=== PATIENT | female | born 1985 | race Two or more races ===

== ENCOUNTER 2019-11-01 12:05 | Observation (INO) | payer MEDICAID, OTHER ==
[~2019-11-01] VITALS: Ht 157.5 cm; Wt 56.7 kg
== END 2019-11-01 13:30 | disposition home or self-care (01) | DRG 563 ==
LOC: LDRP 12:05
PROVIDERS: ADMIT Specialist; ATTEND Specialist
DX: O60.03 Preterm labor without delivery, third trimester (principal); Z3A.30 30 weeks gestation of pregnancy
CPT/HCPCS: 59025; 81002; G0378

== ENCOUNTER 2019-11-08 11:35 | Observation (INO) | payer MEDICAID | END 2019-11-08 12:20 | disposition home or self-care (01) | DRG 563 | LOC: LDRP 11:35 | PROVIDERS: ADMIT Obstetrics & Gynecology; ATTEND Obstetrics & Gynecology | DX: O60.03 Preterm labor without delivery, third trimester (principal); Z3A.31 31 weeks gestation of pregnancy | CPT/HCPCS: 59025; 81002; G0378 ==

== ENCOUNTER 2019-11-15 12:20 | Observation (INO) | payer MEDICAID ==
[2019-11-15] MEDS ORDERED: NIF10C PO (15:05)
[2019-11-15] MEDS ORDERED: FERR-7 PO (15:05)
[2019-11-15] MEDS ORDERED: HYDR250I6 IM (15:06)
[2019-11-15] MEDS ORDERED: PREN-153 OR (15:06)
== END 2019-11-15 13:25 | disposition home or self-care (01) | DRG 563 ==
LOC: LDRP 12:20
PROVIDERS: ADMIT Obstetrics & Gynecology; ATTEND Obstetrics & Gynecology
DX: O60.03 Preterm labor without delivery, third trimester (principal); Z3A.30 30 weeks gestation of pregnancy
CPT/HCPCS: 59025; 81002; G0378

== ENCOUNTER 2019-11-22 11:44 | Observation (INO) | payer MEDICAID ==
[~2019-11-22 11:44] MED LIST: FERR-7 PO; HYDR250I6 IM; NIF10C PO; PREN-153 OR
== END 2019-11-22 12:35 | disposition home or self-care (01) | DRG 563 ==
LOC: LDRP 11:44
PROVIDERS: ADMIT Obstetrics & Gynecology; ATTEND Obstetrics & Gynecology
DX: O60.03 Preterm labor without delivery, third trimester (principal); Z3A.31 31 weeks gestation of pregnancy
CPT/HCPCS: 59025; 81002; G0378

== ENCOUNTER 2019-11-29 11:18 | Observation (INO) | payer MEDICAID ==
[~2019-11-29] VITALS: Ht 160 cm; Wt 61.2 kg
== END 2019-11-29 12:45 | disposition home or self-care (01) | DRG 563 ==
LOC: LDRP 11:18
PROVIDERS: ADMIT Obstetrics & Gynecology; ATTEND Obstetrics & Gynecology
DX: O60.03 Preterm labor without delivery, third trimester (principal); Z3A.32 32 weeks gestation of pregnancy
CPT/HCPCS: 59025; 81002; G0378

== ENCOUNTER 2019-12-06 11:55 | Observation (INO) | payer MEDICAID | END 2019-12-06 13:00 | disposition home or self-care (01) | DRG 563 | LOC: LDRP 11:55 | PROVIDERS: ADMIT Obstetrics & Gynecology; ATTEND Obstetrics & Gynecology | DX: O60.03 Preterm labor without delivery, third trimester (principal); Z3A.33 33 weeks gestation of pregnancy | CPT/HCPCS: 59025; 81002; G0378 ==

== ENCOUNTER 2019-12-13 12:12 | Observation (INO) | payer MEDICAID | END 2019-12-13 13:20 | disposition home or self-care (01) | DRG 563 | LOC: LDRP 12:12 | PROVIDERS: ADMIT Obstetrics & Gynecology; ATTEND Obstetrics & Gynecology | DX: O60.03 Preterm labor without delivery, third trimester (principal); Z3A.34 34 weeks gestation of pregnancy; Z87.51 Personal history of pre-term labor | CPT/HCPCS: 59025; 81002; G0378 ==

== ENCOUNTER 2019-12-20 10:45 | Observation (INO) | payer MEDICAID ==
[~2019-12-20] VITALS: Ht 157.5 cm; Wt 62.6 kg
[2019-12-20] MEDS ORDERED: TERBUTALINE SULFATE 1 MG/ML 1ML VIAL SC ONE (11:45)
[2019-12-20] MEDS ORDERED: LACTATED RINGER'S 1,000 ML IV ONE (11:45)
== END 2019-12-20 14:37 | disposition home or self-care (01) | DRG 563 ==
LOC: LDRP 10:45
PROVIDERS: ADMIT Specialist; ATTEND Specialist
DX: O60.03 Preterm labor without delivery, third trimester (principal); Z3A.35 35 weeks gestation of pregnancy
CPT/HCPCS: 59025; 81002; 96372; G0378; J3105; 96361

== ENCOUNTER 2019-12-22 13:02 | Observation (INO) | payer MEDICAID ==
[~2019-12-22] VITALS: Ht 160 cm; Wt 62.1 kg
[2019-12-22] MEDS ORDERED: LACTATED RINGER'S 1,000 ML IV ONE (14:38)
[2019-12-22] MEDS ORDERED: TERBUTALINE SULFATE 1 MG/ML 1ML VIAL SC ONE (14:45)
[2019-12-22] MEDS ORDERED: BETAMETHASONE ACET (6MG/ML) 5ML VIAL IM SCH (15:30)
[2019-12-23] MEDS ORDERED: BETAMETHASONE ACET (6MG/ML) 5ML VIAL IM SCH (10:00)
== END 2019-12-22 16:05 | disposition home or self-care (01) | DRG 563 ==
LOC: LDRP 13:02
PROVIDERS: ADMIT Specialist; ATTEND Specialist
DX: O60.03 Preterm labor without delivery, third trimester (principal); Z3A.35 35 weeks gestation of pregnancy
CPT/HCPCS: 59025; 76818; 81002; 96361; 96372; 96375; G0378; J0702; J3105

== ENCOUNTER 2019-12-23 13:24 | Observation (INO) | payer MEDICAID ==
[~2019-12-23] VITALS: Ht 160 cm; Wt 62.1 kg
[2019-12-23] MEDS ORDERED: BETAMETHASONE ACET (6MG/ML) 5ML VIAL IM ONE (13:45)
== END 2019-12-23 15:05 | disposition home or self-care (01) | DRG 563 ==
LOC: LDRP 13:24
PROVIDERS: ADMIT Obstetrics & Gynecology; ATTEND Obstetrics & Gynecology
DX: O60.03 Preterm labor without delivery, third trimester (principal); Z3A.36 36 weeks gestation of pregnancy
CPT/HCPCS: 59025; 76818; 81002; 96372; G0378

== ENCOUNTER 2019-12-25 10:54 | Observation (INO) | payer MEDICAID ==
[2019-12-25 12:08] LABS: Urine Bacteria MANY /hpf (None Seen); Urine Blood TRACE /uL (Negative); Urine Mucus FEW (None Seen); Urine Specific Gravity 1.022 (1.001-1.035); Urine WBC 29 /hpf (0 - 5)
== END 2019-12-25 12:15 | disposition home or self-care (01) | DRG 563 ==
LOC: LDRP 10:54
PROVIDERS: ADMIT Specialist; ATTEND Specialist
DX: O60.03 Preterm labor without delivery, third trimester (principal); Z3A.36 36 weeks gestation of pregnancy
CPT/HCPCS: 59025; 76818; 81001; 81002; G0378

== ENCOUNTER 2019-12-27 10:05 | Observation (INO) | payer MEDICAID | END 2019-12-27 12:34 | disposition home or self-care (01) | DRG 566 | LOC: LDRP 10:05 | PROVIDERS: ADMIT Specialist; ATTEND Specialist | DX: O41.03X0 Oligohydramnios, third trimester, not applicable or unspecified (principal); O60.03 Preterm labor without delivery, third trimester; Z3A.36 36 weeks gestation of pregnancy | CPT/HCPCS: 59025; 76818; 81002; 87086; 87088; 87186; G0378 ==

== ENCOUNTER 2020-01-01 10:12 | Observation (INO) | payer MEDICAID | END 2020-01-01 12:05 | disposition home or self-care (01) | DRG 563 | LOC: LDRP 10:12 | PROVIDERS: ADMIT Obstetrics & Gynecology; ATTEND Obstetrics & Gynecology | DX: O60.03 Preterm labor without delivery, third trimester (principal); Z3A.37 37 weeks gestation of pregnancy | CPT/HCPCS: 59025; 76818; 81002; G0378 ==

== ENCOUNTER 2020-01-08 11:02 | Observation (INO) | payer MEDICAID | END 2020-01-08 12:40 | disposition home or self-care (01) | DRG 563 | LOC: LDRP 11:02 | PROVIDERS: ADMIT Specialist; ATTEND Specialist | DX: O60.03 Preterm labor without delivery, third trimester (principal); Z3A.38 38 weeks gestation of pregnancy | CPT/HCPCS: 76818; 81002; G0378 ==

== ENCOUNTER 2020-01-09 08:20 | Inpatient (IN) | payer MEDICAID ==
[2020-01-09] VITALS (12 sets, daily range): BP systolic 110–130; BP diastolic 59–85
[~2020-01-09] VITALS: Ht 160 cm; Wt 63.5 kg
[2020-01-09] MEDS ORDERED: DERMOPLAST 60ML BOTTLE TOP PRN (09:45)
[2020-01-09] MEDS ORDERED: WITCH HAZEL-GLYCERIN PAD TOP PRN (09:45)
[2020-01-09 10:19] LABS: Urine Bacteria FEW /hpf (None Seen); Urine Blood TRACE /uL (Negative); Urine Mucus FEW (None Seen); Urine Specific Gravity 1.011 (1.001-1.035); Urine WBC 10 /hpf (0 - 5)
[2020-01-09 10:21] LABS: Basophils # (auto) 0 10 ^3/uL (0-0.2); Basophils % (auto) 0.2 % (0.0-2.0); Eosinophils # (auto) 0.1 10 ^3/uL (0-0.8); Eosinophils % (auto) 1.5 % (0.0-7.0); Hematocrit 36.9 % (36.0-46.0); Hemoglobin 12.4 g/dL (12.2-16.2); Lymphocytes # (auto) 1.6 10 ^3/uL (0.4-5.4); Lymphocytes % (auto) 19.8 % (10.0-50.0); Mean Corpuscular Hemoglobin 29.9 pg (28.0-32.0); Mean Corpuscular Hgb Conc. 33.7 g/dL (32.0-36.0); Mean Corpuscular Volume 88.8 fL (80.0-100.0); Monocytes # (auto) 0.6 10 ^3/uL (0-1.3); Neutrophils # (auto) 5.6 10 ^3/uL (1.6-8.6); Neutrophils % (auto) 70.5 % (37.0-80.0); Nucleated Red Blood Cells % 0.1 %; Platelet Count (auto) 216 10^3/uL (140-450); Red Blood Cells 4.16 10^6/uL (4.0-5.20); Red Cell Distribution Width 16.6 % (11.8-14.3); White Blood Cell 7.9 10^3/uL (4.4-10.8)
[2020-01-09 10:34] LABS: Albumin 2.7 g/dL (3.4-5.0); Calcium 8.9 mg/dL (8.5-10.1); Potassium 3.8 mmol/L (3.5-5.1)
[2020-01-09 10:37] LABS: BUN/Creatinine Ratio 16.3; Bilirubin, Total 0.3 mg/dL (0.2-1.0); Total Protein 7.3 g/dL (6.4-8.2)
[2020-01-09 10:49] LABS: INR 0.9 (0.9-1.15); Partial Thromboplastin Time 26.7 sec (23.64-32.05)
[2020-01-09] MEDS ORDERED: MORPHINE SULF(PF) 0.5MG/ML 10ML VIAL ONE (11:53)
[2020-01-09] MEDS ORDERED: ePHEDrine SULFATE 50 MG/ML AMP ONE (11:55)
[2020-01-09] MEDS ORDERED: PHENYLEPHRINE HCL 10 MG/ML VL ONE (11:55)
[2020-01-09] MEDS ORDERED: TETRACAINE 1% INJ 2 ML VIAL IJ ONE (11:56)
[2020-01-09] MEDS ORDERED: oxyTOCIN 10 UNIT/ML 10ML VIAL ONE (11:57)
[2020-01-09] MEDS ORDERED: ceFAZolin 1GM VL ONE (11:57)
[2020-01-09] MEDS ORDERED: LACT. RINGERS/OXYTOCIN 20UNITS 1,000 ML IV SCH (11:59)
[2020-01-09] MEDS ORDERED: ONDANSETRON HCL 4 MG/2 ML VIAL IV PRN ×3 (12:00→13:30)
[2020-01-09] MEDS ORDERED: ceFAZolin 1GM/50ML 50 ML IV SCH (12:00)
[2020-01-09] MEDS ORDERED: MIDAZOLAM HCL 1MG/1ML-2 ML VIAL ONE (12:30)
[2020-01-09] MEDS ORDERED: ACETAMINOPHEN IV 1000 MG/100ML (10MG/ML) IV PRN (13:00)
[2020-01-09] MEDS ORDERED: NALOXONE HCL 0.4 MG/ML VIAL IV PRN ×2 (13:30)
[2020-01-09] MEDS ORDERED: HYDROmorphone HCL 2 MG/ML VL IV PRN (13:30)
[2020-01-09] MEDS ORDERED: diphenhdrAMINE HCL 50 MG/1 ML VL IV PRN (13:30)
[2020-01-09] MEDS: LACTATED RINGER'S 1,000 ML IV SCH ×2 (17:41→20:05)
[2020-01-09] MEDS ORDERED: PHISODERM TOP SOLN 240ML BTL TOP PRN (17:45)
[2020-01-09] MEDS: ceFAZolin 1GM/50ML 50 ML IV SCH (20:04)
[2020-01-09 20:16] LABS: Basophils # (auto) 0 10 ^3/uL (0-0.2); Basophils % (auto) 0.3 % (0.0-2.0); Eosinophils # (auto) 0.1 10 ^3/uL (0-0.8); Eosinophils % (auto) 0.4 % (0.0-7.0); Hematocrit 36.2 % (36.0-46.0); Hemoglobin 11.8 g/dL (12.2-16.2); Lymphocytes # (auto) 1.4 10 ^3/uL (0.4-5.4); Lymphocytes % (auto) 11.4 % (10.0-50.0); Mean Corpuscular Hemoglobin 29.2 pg (28.0-32.0); Mean Corpuscular Hgb Conc. 32.7 g/dL (32.0-36.0); Mean Corpuscular Volume 89.2 fL (80.0-100.0); Monocytes # (auto) 0.6 10 ^3/uL (0-1.3); Monocytes % (auto) 5.1 % (0.0-12.0); Neutrophils # (auto) 9.8 10 ^3/uL (1.6-8.6); Neutrophils % (auto) 82.8 % (37.0-80.0); Platelet Count (auto) 201 10^3/uL (140-450); Red Blood Cells 4.05 10^6/uL (4.0-5.20); Red Cell Distribution Width 16.3 % (11.8-14.3); White Blood Cell 11.9 10^3/uL (4.4-10.8)
[2020-01-10] VITALS (7 sets, daily range): BP systolic 110–131; BP diastolic 71–88
[2020-01-10] MEDS: MORPHINE SULF INJ 2 MG/ML SYRINGE 1ML IV PRN ×2 (00:30→04:46)
[2020-01-10 04:06] LABS: RPR Non Reactive (Non Reactive)
[2020-01-10] MEDS: ceFAZolin 1GM/50ML 50 ML IV SCH ×2 (04:11→12:09)
[2020-01-10 06:00] LABS: Basophils # (auto) 0 10 ^3/uL (0-0.2); Basophils % (auto) 0.3 % (0.0-2.0); Eosinophils # (auto) 0.1 10 ^3/uL (0-0.8); Eosinophils % (auto) 1.3 % (0.0-7.0); Hematocrit 35.5 % (36.0-46.0); Hemoglobin 11.8 g/dL (12.2-16.2); Lymphocytes # (auto) 1.2 10 ^3/uL (0.4-5.4); Lymphocytes % (auto) 11.7 % (10.0-50.0); Mean Corpuscular Hemoglobin 29.8 pg (28.0-32.0); Mean Corpuscular Hgb Conc. 33.3 g/dL (32.0-36.0); Mean Corpuscular Volume 89.6 fL (80.0-100.0); Monocytes # (auto) 0.6 10 ^3/uL (0-1.3); Monocytes % (auto) 6.2 % (0.0-12.0); Neutrophils # (auto) 7.9 10 ^3/uL (1.6-8.6); Neutrophils % (auto) 80.5 % (37.0-80.0); Platelet Count (auto) 205 10^3/uL (140-450); Red Blood Cells 3.96 10^6/uL (4.0-5.20); Red Cell Distribution Width 16.6 % (11.8-14.3); White Blood Cell 9.8 10^3/uL (4.4-10.8)
[2020-01-10] MEDS ORDERED: ACETAMINOPHEN IV 1000 MG/100ML (10MG/ML) IV ONE (07:30)
[2020-01-10] MEDS ORDERED: IBUPROFEN 800 MG TAB PO PRN (08:30)
[2020-01-10] MEDS ORDERED: BISACODYL 10 MG RECT SUPP PR PRN (08:30)
[2020-01-10] MEDS ORDERED: DOCUSATE CALCIUM 240 MG CAP PO SCH (10:00)
[2020-01-10] MEDS: DOCUSATE SOD 100 MG CAP PO SCH ×2 (10:24→21:44)
[2020-01-10] MEDS: SIMETHICONE 80 MG CHEWABLE TABLET PO SCH ×3 (12:08→21:44)
[2020-01-10] MEDS ORDERED: diphenhdrAMINE HCL 25 MG CAP PO PRN (13:30)
[2020-01-10] MEDS: HYDROcodone-ACET 5/325MG TAB PO PRN ×2 (17:30→21:44)
[2020-01-10] MEDS: IBUPROFEN 800 MG TAB PO PRN (18:44)
[2020-01-10] MEDS ORDERED: TETANUS-DIPTH-ACEL PERTUSSIS 0.5ML SYR Tdap IM ONE (21:15)
[2020-01-11] MEDS: IBUPROFEN 800 MG TAB PO PRN ×2 (02:49→15:44)
[2020-01-11 03:00] VITALS: BP 115/79
[2020-01-11] MEDS: SIMETHICONE 80 MG CHEWABLE TABLET PO SCH ×4 (05:32→21:26)
[2020-01-11 07:00] VITALS: BP 120/75
[2020-01-11] MEDS: DOCUSATE SOD 100 MG CAP PO SCH ×2 (09:32→21:26)
[2020-01-11 11:10] VITALS: BP 115/76
[2020-01-11] MEDS: HYDROcodone-ACET 5/325MG TAB PO PRN ×2 (12:17→17:40)
[2020-01-11 15:20] VITALS: BP 123/79
[2020-01-11 18:51] VITALS: BP 122/81
[2020-01-11 23:05] VITALS: BP 120/79
[2020-01-12] MEDS: HYDROcodone-ACET 5/325MG TAB PO PRN (01:20)
[2020-01-12 02:46] VITALS: BP 119/74
[2020-01-12] MEDS: IBUPROFEN 800 MG TAB PO PRN (05:34)
[2020-01-12] MEDS: SIMETHICONE 80 MG CHEWABLE TABLET PO SCH (05:34)
[2020-01-12 07:00] VITALS: BP 116/71
== END 2020-01-12 09:40 | disposition home or self-care (01) | DRG 540 ==
LOC: LDRP 08:20 → OBSVTOIN 09:20 → LDRP 12:25
PROVIDERS: ADMIT Obstetrics & Gynecology; ATTEND Obstetrics & Gynecology
PROC: 0UL70CZ Occlusion of Bilateral Fallopian Tubes with Extraluminal Device, Open Approach (ICD-10-PCS; 2020-01-09)
PROC: 10D00Z1 Extraction of Products of Conception, Low, Open Approach (ICD-10-PCS; principal; 2020-01-09 11:50)
DX: O34.211 Maternal care for low transverse scar from previous cesarean delivery (principal); O41.03X0 Oligohydramnios, third trimester, not applicable or unspecified; Z37.0 Single live birth; Z3A.38 38 weeks gestation of pregnancy
CPT/HCPCS: 36415; 51702; 59025; 76818; 80053; 81001; 81002; 84112; 85025; 85610; 85730; 86592; 86850; 86900; 86901; 90472; 90715; 94760; 96361; 96365; 96366; 96374; 96375; G0378; J0131; J0690; J2250; J2405; J2590